=== PATIENT | female | born 2000 | race Caucasian/White ===

== ENCOUNTER 2019-04-07 20:13 | Emergency (ER) | payer OTHER ==
[~2019-04-07] VITALS: Ht 162.6 cm; Wt 59.1 kg
[2019-04-07 20:17] VITALS: BP 136/85; PULSE 83; TEMP 100
[2019-04-07] MEDS ORDERED: ZOLOFT 50MG50 MG PO (20:24)
== END 2019-04-07 20:58 | disposition home or self-care (01) ==
LOC: COL.ER 20:13
DX: S16.1XXA Strain of muscle, fascia and tendon at neck level, initial encounter (principal); S70.02XA Contusion of left hip, initial encounter; S70.01XA Contusion of right hip, initial encounter; F32.9 Major depressive disorder, single episode, unspecified; V43.52XA Car driver injured in collision with other type car in traffic accident, initial encounter

== ENCOUNTER 2019-10-27 16:06 | Emergency (ER) | payer OTHER ==
[~2019-10-27] VITALS: Ht 162.6 cm; Wt 56.8 kg
[~2019-10-27 16:06] MED LIST: ZOLOFT 50MG50 MG PO
[2019-10-27] MEDS ORDERED: PROZAC 20MG20 MG PO (16:12)
[2019-10-27] MEDS ORDERED: DOXYCYCLINE 10100 MG PO (16:13)
[2019-10-27 20:48] LABS: BASO % 0.3 % (0.0-2.0); EOS % 0.1 % (0-4.0); GRAN # 10.1 (1.4-6.5); GRAN % 77.7 % (42.2-75.2); HEMATOCRIT 37.8 % (35.0-45.0); HEMOGLOBIN 12.8 g/dl (12.0-15.0); LYMPH # 2.2 (1.2-3.4); LYMPH % 16.8 % (20.0-51.0); MEAN CELL VOLUME 87 fl (80.0-95.0); MEAN CORPUSCULAR HEMOGLOBIN 30 pg (26.0-32.0); MEAN CORPUSCULAR HGB CONC 34 g/dl (33.0-37.0); MEAN PLATELET VOLUME 8.7 fl (7.4-10.4); MONO # 0.6 (0.1-0.6); MONO % 4.6 % (1.7-9.3); PLATELET COUNT 318 K/mm3 (130-400); RED BLOOD COUNT 4.34 M/mm3 (4.10-5.30); REDCELL DISTRIBUTION WIDTH-CV 12.1 % (11.5-14.5)
[2019-10-27 21:17] LABS: ALBUMIN 4.7 gm/dL (3.5-5.0); BILIRUBIN,TOTAL 0.3 mg/dL (0.0-1.0); CALCIUM 9.4 mg/dL (8.4-10.2); CREATININE, serum 0.55 (0.52-1.25); POTASSIUM 3.8 mmol/L (3.4-5.0); TOTAL PROTEIN 7.9 gm/dL (6.4-8.2)
[2019-10-28 05:34] VITALS: TEMP 98.4
[2019-10-28 08:00] VITALS: BP 132/80; PULSE 74
== END 2019-10-28 08:00 | disposition short-term general hospital (02) ==
LOC: COL.ER 16:06
PROVIDERS: Emergency Medicine
DX: S12.100A Unspecified displaced fracture of second cervical vertebra, initial encounter for closed fracture (principal); S12.000A Unspecified displaced fracture of first cervical vertebra, initial encounter for closed fracture; V48.6XXA Car passenger injured in noncollision transport accident in traffic accident, initial encounter
CPT/HCPCS: J1200; J7030; Q9967

== ENCOUNTER → 2020-03-17 | Outpatient (CLI) | payer OTHER ==
[~2020-03-17] MED LIST changes: +DOXYCYCLINE 10100 MG PO; +PROZAC 20MG20 MG PO
== END ==
LOC: COL.RAD 15:39
DX: S12.001A Unspecified nondisplaced fracture of first cervical vertebra, initial encounter for closed fracture (principal)

== ENCOUNTER 2021-02-15 19:01 | Emergency (ER) | payer BC ==
[~2021-02-15] VITALS: Ht 165.1 cm; Wt 59.1 kg
[2021-02-15 21:58] VITALS: BP 109/66; PULSE 98; TEMP 98.7
[2021-02-16] MEDS ORDERED: MAGIC MOUTH PO ×3 (09:46→10:52)
== END 2021-02-15 21:58 | disposition home or self-care (01) ==
LOC: COL.ER 19:01
DX: J03.90 Acute tonsillitis, unspecified (principal); F41.9 Anxiety disorder, unspecified; R00.0 Tachycardia, unspecified; Z79.899 Other long term (current) drug therapy
CPT/HCPCS: J1885; J7030

== ENCOUNTER 2021-02-16 09:20 | Emergency (ER) | payer BC ==
[~2021-02-16] VITALS: Ht 165.1 cm; Wt 59.1 kg
[2021-02-16 09:25] VITALS: BP 133/79; TEMP 98.2
[2021-02-16] MEDS ORDERED: MAGIC MOUTH PO ×3 (09:46→10:52)
[2021-02-16 10:18] VITALS: PULSE 99
== END 2021-02-16 10:20 | disposition home or self-care (01) ==
LOC: COL.ER 09:20
DX: J02.9 Acute pharyngitis, unspecified (principal); F41.9 Anxiety disorder, unspecified; Z20.822 Contact with and (suspected) exposure to COVID-19; Z79.899 Other long term (current) drug therapy
CPT/HCPCS: J1100